=== PATIENT | female | born 1965 | race Caucasian/White ===

== ENCOUNTER → 2020-04-17 16:02 | Outpatient (CLI) | payer BC, SELFPAY ==
--- NOTE | ~2020-04-17 | MM_ITS ---
EXAMINATION: MM screening [facility] BI w [facility] HISTORY: Screening TECHNIQUE: Craniocaudal and mediolateral oblique 3-D tomosynthesis images were obtained and synthetic 2-D images were generated. CAD analysis was submitted and interpreted. COMPARISON: Comparison to multiple prior studies sequentially, with oldest reviewed study dated 03/2016. BREAST PARENCHYMAL COMPOSITION: The breasts are heterogeneously dense, which may obscure small masses . FINDINGS: There is no evidence of suspicious mass, calcification, or architectural distortion to sugg est malignancy in either breast. There has been no suspicious interval change. IMPRESSION: 1. No mammographic evidence of malignancy. 2. Recommend routine screening mammography in one year. BI-RADS Category 1: Negative Reviewed, dictated and finalized at location A.
== END ==
PROVIDERS: Visit Provider Nurse Practitioner Obstetrics & Gynecology
DX: Z12.31 Encounter for screening mammogram for malignant neoplasm of breast (principal)
CPT/HCPCS: 77063; 77067

== ENCOUNTER 2020-06-22 01:46 | Outpatient (CLI) | payer BC, SELFPAY ==
[2020-06-22 20:00] LABS: SARS-CoV-2 RNA PCR Negative
== END 2020-06-22 01:47 | disposition home or self-care (01) ==
LOC: ANHCOVIDDT 01:46
PROVIDERS: PCP Nurse Practitioner Obstetrics & Gynecology; Visit Provider Internal Medicine Gastroenterology
DX: Z01.812 Encounter for preprocedural laboratory examination (principal); Z20.828 Contact with and (suspected) exposure to other viral communicable diseases
CPT/HCPCS: 87635; C9803; U0003

== ENCOUNTER 2020-06-25 01:27 | Day surgery (SDC) | payer BC, SELFPAY ==
[2020-06-20 08:39] VITALS: BMI 26.2
[2020-06-25 06:31] VITALS: BP 125/70; PULSE 75; RESP 16; TEMP 36; O2SAT 100
[2020-06-25] MEDS: LACTATED RINGERS 1,000 ML 150 ML IV CONT (06:37)
--- NOTE | 2020-06-25 06:53 | WPDANESEPPF ---
Anes - Initial Pre Proc Eval Procedure: Operation Date: 06/25/20 07:30 Proposed Procedures p Screening Colonoscopy - Nirmal Hudson MD Date/Time: 06/25/20 06:53 Surgeon: Nirmal Hudson MD Pre Op Diagnosis: Neoplasm Screening/ Fam Hx Colon Ca Patient Data Age: 55 Gender: F Height: 1.7 m Weight: 74.5 kg Last Vital Signs Temp 36.0 C L 06/25/20 06:31 Pulse 75 06/25/20 06:31 Resp 16 06/25/20 06:31 BP 125/70 06/25/20 06:31 Pulse Ox 100 06/25/20 06:31 Allergies Allergy/AdvReac Type Severity Reaction Status Date / Time No Known Allergies Allergy Unknown Verified 06/25/20 06:24 Home Medications Medication Instructions Recorded Confirmed Type azelastine 1 spray INTRANASAL DAILY 06/20/20 06/20/20 History fluticasone propionate [Flonase] 1 spray INTRANASAL DAILY 06/20/20 06/20/20 History iron,carbonyl-vitamin C-FOS 1 tablet PO DAILY 06/20/20 06/20/20 History [Chewable Iron] montelukast 10 mg PO DAILY 06/20/20 06/20/20 History xtqdmwejyjke-xcn-plny-FA-vit K 1 tablet PO DAILY 06/20/20 06/20/20 History [Adults Multivitamin] progesterone micronized 100 mg PO DAILY 06/20/20 06/20/20 History Patient hx anesthesia problems: none Family hx anesthesia problems: none PMFSH Social History Social History Smoking status: Never smoker Second hand tobacco smoke exposure: No Alcohol intake: never Living arrangements: with family Spiritual care concerns: No Anes - Eval Final PreProcedure Day of Procedure 06/25/20 06:53 Patient weight: overweight Heart: regular rate and rhythm Lungs: clear to auscultation and normal air movement Airway: Mallampati scale class II Neurological: alert and oriented Last oral intake: >/= 8 hours ASA classification: II Emergent: no Anesthetic plan: proceed Anesthesia type and monitoring: general GIVS Informed Consent: The patient's anesthetic plan and its attendant risks and benefits were discussed with the patient/family/POA. Questions were solicited and answers provided to the satisfaction of the patient/family/POA.
[2020-06-25 07:46] VITALS: BP 95/53; RESP 16; O2SAT 98
--- NOTE | 2020-06-25 07:46 | WPDGICN ---
Assessment and Plan Assessment and plan (1) Encounter for colonoscopy in patient with family history of colon cancer: Code(s): Z12.11 - Encounter for screening for malignant neoplasm of colon; Z80.0 - Family history of malignant neoplasm of digestive organs Status: Acute Assessment and Plan: Patient's family history is significant a brother has had colon cancer in several siblings have had colon polyps. Plan is for colonoscopy now and at 5 year intervals in the future. Further recommendations will be given after endoscopy. GI Consult Note Consult date/time: 06/25/20 07:46 HPI: Amira Toth is a 55 year old female Presents for surveillance colonoscopy patient states that her own current weight appetite and bowel movements are normal. She denies abdominal pain. She has had no bleeding. Her weight is stable. Family history is significant that her brother had colon cancer. She has had several siblings with polyps as well. She presents today for colonoscopy. Review of Systems Review of Systems: All systems reviewed & are unremarkable except as noted in HPI and below PMFSH Social History Social History Smoking status: Never smoker Second hand tobacco smoke exposure: No Alcohol intake: never Living arrangements: with family Spiritual care concerns: No Meds Home Medications and Allergies Home Medications Medication Instructions Recorded Confirmed Type azelastine 1 spray INTRANASAL DAILY 06/20/20 06/20/20 History fluticasone propionate [Flonase] 1 spray INTRANASAL DAILY 06/20/20 06/20/20 History iron,carbonyl-vitamin C-FOS 1 tablet PO DAILY 06/20/20 06/20/20 History [Chewable Iron] montelukast 10 mg PO DAILY 06/20/20 06/20/20 History uppruuxuxqdd-oeu-cooc-FA-vit K 1 tablet PO DAILY 06/20/20 06/20/20 History [Adults Multivitamin] progesterone micronized 100 mg PO DAILY 06/20/20 06/20/20 History Allergies Allergy/AdvReac Type Severity Reaction Status Date / Time No Known Allergies Allergy Unknown Verified 06/25/20 06:24 Vital Signs Vital Signs - 24 hr 06/25/20 06:31 Temperature 96.8 F L Pulse Rate 75 Respiratory Rate 16 Blood Pressure 125/70 Pulse Oximetry 100 Exam Narrative: Exam Narrative: Physical exam reveals patient to be alert. Vital signs stable. HEENT exam is unremarkable. Lungs are clear to auscultation and percussion. Heart is without murmur or extra sounds. Abdominal exam bowel sounds are present soft nontender with no organomegaly. Digital external rectal exam is normal.
[2020-06-25 07:56] VITALS: BP 101/54; RESP 17; O2SAT 98
[2020-06-25 08:06] VITALS: BP 106/64; RESP 18; O2SAT 99
== END 2020-06-25 08:24 | disposition home or self-care (01) ==
PROVIDERS: PCP Nurse Practitioner Obstetrics & Gynecology; Visit Provider Internal Medicine Gastroenterology
PROC: 0DJD8ZZ Inspection of Lower Intestinal Tract, Via Natural or Artificial Opening Endoscopic (ICD-10-PCS; CPT 45378; principal; 2020-06-25 07:30)
DX: Z12.11 Encounter for screening for malignant neoplasm of colon (principal); K64.8 Other hemorrhoids; K57.30 Diverticulosis of large intestine without perforation or abscess without bleeding; Z83.71 Family history of colonic polyps; Z80.0 Family history of malignant neoplasm of digestive organs
CPT/HCPCS: 45378; J2704; J7120

== ENCOUNTER → 2021-02-13 17:57 | Outpatient (CLI) | payer BC, SELFPAY ==
--- NOTE | ~2021-02-13 | DEXA_ITS ---
Bone Density Report Name: Amira Toth Age: 56 Sex: Female Ethnicity: White Date of : 1965 Indication: osteopenia; monitoring treatment; Referring Provider: Veronica Sahni Study: Bone densitometry was performed. Exam Date: February 13, 2021 Accession number: [id number] Bone Density: Region BMD T-score Z-score Classification AP Spine (L1-L4) 0.886 -1.5 -0.3 Osteopenia Femoral Neck (Left) 0.707 -1.3 -0.1 Osteopenia Total Hip (Left) 0.804 -1.1 -0.3 Osteopenia Femoral Neck (Right) 0.717 -1.2 0.0 Osteopenia Total Hip (Right) 0.812 -1.1 -0.3 Osteopenia Total Hip Mean 0.808 -1.1 -0.3 Osteopenia World Health Organization criteria for BMD impression classify patients as: Normal (T-score at or above -1.0), Osteopenia (T-score between -1.0 and -2.5), or Osteoporosis (T-score at or below -2.5). 10-year Fracture Risk: FRAX not reported because: Premenopausal woman Treated for osteoporosis Previous Exams: Region Exam Age BMD T-score BMD Change BMD Change Date g/cm2 vs Baseline vs Previous AP Spine(L1-L4) 02/13/2021 56 0.886 -1.5 -0.018 -0.019 01/03/2019 54 0.905 -1.3 0.001 -0.060* 11/17/2016 51 0.964 -0.8 0.061* 0.024* 09/02/2014 49 0.941 -1.0 0.037* 0.015 09/13/2011 46 0.925 -1.1 0.022 0.014 07/02/2009 44 0.911 -1.2 0.007 -0.038* 04/21/2008 43 0.949 -0.9 0.045* 0.045* 01/07/2006 41 0.904 -1.3 Total Hip(Left) 02/13/2021 56 0.804 -1.1 0.017 0.025 01/03/2019 54 0.779 -1.3 -0.008 -0.052* 11/17/2016 51 0.830 -0.9 0.044* -0.022 09/02/2014 49 0.852 -0.7 0.065* 0.068* 09/13/2011 46 0.784 -1.3 -0.003 0.018 07/02/2009 44 0.766 -1.4 -0.021 -0.075* 04/21/2008 43 0.842 -0.8 0.055* 0.055* 01/07/2006 41 0.787 -1.3 Total Hip(Right) 02/13/2021 56 0.812 -1.1 0.079* -0.003 01/03/2019 54 0.815 -1.0 0.082* 0.004 11/17/2016 51 0.810 -1.1 0.077* 0.015 09/02/2014 49 0.795 -1.2 0.062* 0.025 09/13/2011 46 0.770 -1.4 0.037* -0.042* 07/02/2009 44 0.812 -1.1 0.079* 0.004 04/21/2008 43 0.807 -1.1 0.074* 0.074* 01/07/2006 41 0.733 -1.7 *Denotes significance at 95% confidence level, LSC for AP Spine = 0.022 g/cm
== END ==
PROVIDERS: Visit Provider Obstetrics & Gynecology
DX: Z13.820 Encounter for screening for osteoporosis (principal); M85.89 Other specified disorders of bone density and structure, multiple sites
CPT/HCPCS: 77080

== ENCOUNTER → 2021-07-18 16:49 | Outpatient (CLI) | payer BC, SELFPAY ==
--- NOTE | ~2021-07-18 | MM_ITS ---
EXAMINATION: MM screening [facility] BI w [facility] HISTORY: Screening TECHNIQUE: Craniocaudal and mediolateral oblique 3-D tomosynthesis images were obtained and synthetic 2-D images were generated. CAD analysis was submitted and interpreted. COMPARISON: Comparison to multiple prior studies sequentially, with oldest reviewed study dated 03/2016. BREAST PARENCHYMAL COMPOSITION: The breasts are heterogeneously dense, which may obscure small masses . FINDINGS: There is no evidence of suspicious mass, calcification, or architectural distortion to sugg est malignancy in either breast. There has been no suspicious interval change. IMPRESSION: 1. No mammographic evidence of malignancy. 2. Recommend routine screening mammography in one year. BI-RADS Category 1: Negative Reviewed, dictated and finalized at location A. S REPRESENTATIVE [employer]
== END ==
PROVIDERS: Visit Provider Obstetrics & Gynecology
DX: Z12.31 Encounter for screening mammogram for malignant neoplasm of breast (principal)
CPT/HCPCS: 77063; 77067

== ENCOUNTER → 2021-08-23 12:41 | Outpatient (CLI) | payer BC, SELFPAY ==
--- NOTE | ~2021-08-23 | XR_ITS ---
XR abdomen/kub 1V 08/23/2021 13:03 INDICATION: Generalized abdominal pain TECHNIQUE: KUB COMPARISON: None FINDINGS: Bowel gas pattern is normal. Moderate colonic fecal loading. There are pelvic phleboliths. There is no evidence of free air, mass, organomegaly, ascites or obstruction. No abnormal calculi ar e seen. The bones appear intact. IMPRESSION: 1: No acute abdominal abnormality identified. Reviewed, dictated and finalized at location A. N RESOURCES CLERK
== END ==
PROVIDERS: PCP Family Medicine; Visit Provider Family Medicine
DX: R10.84 Generalized abdominal pain (principal)
CPT/HCPCS: 74018

== ENCOUNTER → 2022-09-26 10:33 | Outpatient (CLI) | payer BC, SELFPAY ==
--- NOTE | ~2022-09-26 | MM_ITS ---
EXAMINATION: MM screening [facility] BI w omar HISTORY: Screening TECHNIQUE: Craniocaudal and mediolateral oblique 3-D tomosynthesis images were obtained and synthetic 2-D images were generated. CAD analysis was submitted and interpreted. COMPARISON: Comparison to multiple prior studies sequentially, with oldest reviewed study dated 03/2016. BREAST PARENCHYMAL COMPOSITION: There are scattered areas of fibroglandular density. FINDINGS: There is no evidence of suspicious mass, calcification, or architectural distortion to sugg est malignancy in either breast. There has been no suspicious interval change. IMPRESSION: 1. No mammographic evidence of malignancy. 2. Recommend routine screening mammography in one year. BI-RADS Category 1: Negative Reviewed, dictated and finalized at location A.
== END ==
PROVIDERS: PCP Obstetrics & Gynecology; Visit Provider Family Medicine
DX: Z12.31 Encounter for screening mammogram for malignant neoplasm of breast (principal)
CPT/HCPCS: 77063; 77067

== ENCOUNTER → 2023-03-13 11:11 | Outpatient (CLI) | payer BC, SELFPAY ==
--- NOTE | ~2023-03-13 | XR_ITS ---
Clinical Indication: Cough PA and lateral views of the chest: Comparison: 08/25/2017 Findings: The lungs are clear, without evidence of focal consolidation or pleural effusion. Cardiome diastinal silhouette is within normal limits. Bones and soft tissues are unremarkable. Impression: Normal chest. Reviewed, dictated and finalized at [facility]. Impression: Normal chest.
== END ==
PROVIDERS: PCP Family Medicine; Visit Provider Nurse Practitioner Family
DX: R05.9 Cough, unspecified (principal)
CPT/HCPCS: 71046

== ENCOUNTER → 2023-06-05 10:17 | Outpatient (CLI) | payer BC, SELFPAY ==
--- NOTE | ~2023-06-05 | DEXA_ITS ---
Bone Density Report Name: ADAM YEPEZ Age: 58 Sex: Female Ethnicity: White Date of : 1965 Indication: osteopenia; postmenopausal Referring Provider: AUSTIN WATKINS Study: Bone densitometry was performed. Exam Date: June 05, 2023 Accession number: [id number] Bone Density: Region BMD T-score Z-score Classification AP Spine (L1-L4) 0.821 -2.1 -0.7 Osteopenia Femoral Neck (Left) 0.639 -1.9 -0.6 Osteopenia Total Hip (Left) 0.752 -1.6 -0.6 Osteopenia Femoral Neck (Right) 0.692 -1.4 -0.2 Osteopenia Total Hip (Right) 0.797 -1.2 -0.3 Osteopenia Total Hip Mean 0.775 -1.4 -0.5 Osteopenia World Health Organization criteria for BMD impression classify patients as: Normal (T-score at or above -1.0), Osteopenia (T-score between -1.0 and -2.5), or Osteoporosis (T-score at or below -2.5). 10-year Fracture Risk(1): Major Osteoporotic Fracture 8.8% Hip Fracture 0.9% Reported Risk Factors: [place] (), Neck BMD=0.639, BMI=26.7 (1) FRAX(R) Version 3.08. Fracture probability calculated for an untreated patient. Fracture probability may be lower if the patient has received treatment. Previous Exams: Region Exam Age BMD T-score BMD Change BMD Change Date g/cm2 vs Baseline vs Previous AP Spine(L1-L4) 06/05/2023 58 0.821 -2.1 -0.082* -0.065* 02/13/2021 56 0.886 -1.5 -0.018 -0.019 01/03/2019 54 0.905 -1.3 0.001 -0.060* 11/17/2016 51 0.964 -0.8 0.061* 0.024* 09/02/2014 49 0.941 -1.0 0.037* 0.015 09/13/2011 46 0.925 -1.1 0.022 0.014 07/02/2009 44 0.911 -1.2 0.007 -0.038* 04/21/2008 43 0.949 -0.9 0.045* 0.045* 01/07/2006 41 0.904 -1.3 Total Hip(Left) 06/05/2023 58 0.752 -1.6 -0.035* -0.053* 02/13/2021 56 0.804 -1.1 0.017 0.025 01/03/2019 54 0.779 -1.3 -0.008 -0.052* 11/17/2016 51 0.830 -0.9 0.044* -0.022 09/02/2014 49 0.852 -0.7 0.065* 0.068* 09/13/2011 46 0.784 -1.3 -0.003 0.018 07/02/2009 44 0.766 -1.4 -0.021 -0.075* 04/21/2008 43 0.842 -0.8 0.055* 0.055* 01/07/2006 41 0.787 -1.3 Total Hip(Right) 06/05/2023 58 0.797 -1.2 0.064* -0.015 02/13/2021 56 0.812 -1.1 0.079* -0.003 01/03/2019 54 0.815 -1.0 0.082* 0.004 11/17/2016 51 0.810 -1.1 0.077* 0.015 09/02/2014 49 0.795 -1.2 0.0
== END ==
PROVIDERS: PCP Family Medicine; Visit Provider Obstetrics & Gynecology
DX: Z78.0 Asymptomatic menopausal state (principal); M85.89 Other specified disorders of bone density and structure, multiple sites
CPT/HCPCS: 77080

== ENCOUNTER 2023-10-09 07:17 | Outpatient (CLI) | payer BC, SELFPAY ==
--- NOTE | ~2023-10-09 | MM_ITS ---
EXAMINATION: MM screening [facility] BI w omar HISTORY: Screening TECHNIQUE: Craniocaudal and mediolateral oblique 3-D tomosynthesis images were obtained and synthetic 2-D images were generated. CAD analysis was submitted and interpreted. COMPARISON: Comparison to multiple prior studies sequentially, with oldest reviewed study dated 11/17. BREAST PARENCHYMAL COMPOSITION: Dense: The breasts are heterogeneously dense, which may obscure small masses FINDINGS: There is no evidence of suspicious mass, calcification, or architectural distortion to sugg est malignancy in either breast. There has been no suspicious interval change. IMPRESSION: 1. No mammographic evidence of malignancy. 2. Recommend routine screening mammography in one year. BI-RADS Category 1: Negative Reviewed, dictated and finalized at location A.
== END 2023-10-09 07:18 ==
LOC: MICIMG 07:18
PROVIDERS: PCP Family Medicine; Visit Provider Obstetrics & Gynecology
DX: Z12.31 Encounter for screening mammogram for malignant neoplasm of breast (principal)
CPT/HCPCS: 77063; 77067

== ENCOUNTER 2024-10-11 13:58 | Outpatient (CLI) | payer BC, SELFPAY ==
--- NOTE | ~2024-10-11 | MM_ITS ---
EXAMINATION: MM screening [facility] BI w omar HISTORY: Screening TECHNIQUE: Craniocaudal and mediolateral oblique 3-D tomosynthesis images were obtained and synthetic 2-D images were generated. CAD analysis was submitted and interpreted. COMPARISON: Comparison to multiple prior studies sequentially, with oldest reviewed study dated 12/26. BREAST PARENCHYMAL COMPOSITION: Dense: The breasts are heterogeneously dense, which may obscure small masses FINDINGS: There is no evidence of suspicious mass, calcification, or architectural distortion to sugg est malignancy in either breast. There has been no suspicious interval change. IMPRESSION: 1. No mammographic evidence of malignancy. 2. Recommend routine screening mammography in one year. BI-RADS Category 1: Negative Reviewed, dictated and finalized at location A.
== END 2024-10-11 13:59 | disposition home or self-care (01) ==
LOC: MICIMG 13:59
PROVIDERS: PCP Family Medicine; Visit Provider Obstetrics & Gynecology
DX: Z12.31 Encounter for screening mammogram for malignant neoplasm of breast (principal)
CPT/HCPCS: 77063; 77067

== ENCOUNTER 2025-06-12 13:59 | Outpatient (CLI) | payer BC, SELFPAY ==
--- NOTE | ~2025-06-12 | DEXA_ITS ---
Bone Density Report Name: ADAM YEPEZ Age: 60 Sex: Female Ethnicity: White Date of : 1965 Indication: osteopenia; Referring Provider: AUSTIN WATKINS Study: Bone densitometry was performed. Exam Date: June 12, 2025 Accession number: [id number] Bone Density: Region BMD T-score Z-score Classification AP Spine(L1-L4) 0.822 -2.0 -0.5 Osteopenia Femoral Neck (Left) 0.639 -1.9 -0.6 Osteopenia Total Hip (Left) 0.767 -1.4 -0.4 Osteopenia Femoral Neck (Right) 0.683 -1.5 -0.2 Osteopenia Total Hip (Right) 0.771 -1.4 -0.4 Osteopenia Total Hip Mean 0.769 -1.4 -0.4 Osteopenia World Health Organization criteria for BMD impression classify patients as: Normal (T-score at or above -1.0), Osteopenia (T-score between -1.0 and -2.5), or Osteoporosis (T-score at or below -2.5). 10-year Fracture Risk(1): Major Osteoporotic Fracture 9.3% Hip Fracture 1.1% Reported Risk Factors: [place] (), Neck BMD=0.639, BMI=24.7 (1) FRAX(R) Version 3.08. Fracture probability calculated for an untreated patient. Fracture probability may be lower if the patient has received treatment. Previous Exams: Region Exam Age BMD T-score BMD Change BMD Change Date g/cm2 vs Baseline vs Previous AP Spine (L1-L4) 06/12/2025 60 0.822 -2.0 0.000 (0.0%)# 0.000 (0.0%)# 06/05/2023 58 0.821 -2.1 Total Hip(Left) 06/12/2025 60 0.767 -1.4 0.016 (2.1%)# 0.016 (2.1%)# 06/05/2023 58 0.752 -1.6 Total Hip(Right) 06/12/2025 60 0.771 -1.4 -0.025 (-3.2%) -0.025 (-3.2%) 06/05/2023 58 0.797 -1.2 *Denotes significance at 95% confidence level, LSC for AP Spine = 0.022 g/cm2, LSC for Total Hip = 0.027 g/cm2 # Denotes dissimilar scan types or analysis methods Clinical Information Provided by Patient: Has used the following medications: Vitamin D, Calcium Patient maximum height was 67.0 Menopause Age: 56 Drinks caffeinated beverages Onset of menses at age 14 Number of children 2 Impression: The patient has low bone mass, based on the Total Spine T-score. The patient has an estimated ten-year risk of hip fracture of 1.1% and an estimated ten-year risk of major fracture of 9.3%, based on the WHO FRAX algorithm. No significant bone loss was observed. Discussion: BONE DENSITY IS LOW AT ONE OR MORE SKELETAL SITES. This patient's lowest T-score is low at one or more skeletal sites. It meets the World Health Organization's (WHO) criteria for ?low bone mass? (T-score between -1.0 and -2.5). The patient's 10-year risk of fracture as calculated by FRAX is less than the threshold where pharmacological therapy is recommended by the National Osteoporosis Foundation (NOF). However, all treatment decisions require clinical judgment and consideration of individual patient factors, including patient preferences, comorbidities, previous drug use, risk factors not captured in the FRAX model (e.g., frailty, falls, vitamin D deficiency, increased bone turnover, interval significant decline in bone density) and possible under or overestimation of fracture risk by FRAX. The patient should follow a healthful lifestyle (good nutrition with adequate calcium and vitamin D, and appropriate weight-bearing exercise). Follow-Up: Consider repeating this study in 2 to 3 years to reassess this patient's status, or sooner if there is some new clinical indication. Reported by: GLORIA on 06/12/2025 2:54:00 PM. Reviewed, dictated and finalized at location A.
== END 2025-06-12 14:00 | disposition home or self-care (01) ==
LOC: ANHFOHIMG 14:03
PROVIDERS: PCP Family Medicine; Visit Provider Obstetrics & Gynecology
DX: M85.89 Other specified disorders of bone density and structure, multiple sites (principal); Z78.0 Asymptomatic menopausal state; Z13.820 Encounter for screening for osteoporosis
CPT/HCPCS: 77080